=== PATIENT | male | born 1950 | race Hispanic/Latino ===

== ENCOUNTER 2023-12-31 09:08 | Outpatient (CLI) | payer OTHER ==
[2023-12-31 10:44] LABS: Anion Gap 13 mmol/L (10-20); BUN (Urea Nitrogen) 16 mg/dL (8.4-25.7); Calc. Creatinine Clearance 0 mL/min (70-130); Calcium 9.3 mg/dL (7.8-10.44); Carbon Dioxide 25 mmol/L (23-31); Chloride 100 mmol/L (98-107); Estimated GFR 93; Glucose 96 mg/dL (83-110); Potassium 4.9 mmol/L (3.5-5.1); Sodium 133 mmol/L (136-145)
[2024-01-01 14:15] LABS: Total PSA 0.5 ng/mL (0.0-4.0)
== END 2023-12-31 09:09 | disposition home or self-care (01) ==
LOC: MADULT 09:08
PROVIDERS: ATTEND Family Medicine
DX: Z87.448 Personal history of other diseases of urinary system (principal); N40.0 Benign prostatic hyperplasia without lower urinary tract symptoms; N28.1 Cyst of kidney, acquired; R93.422 Abnormal radiologic findings on diagnostic imaging of left kidney
CPT/HCPCS: 36415; 76770; 80048; 84153; 84154

== ENCOUNTER 2024-04-05 17:41 | Outpatient (CLI) | payer OTHER | END 2024-04-05 17:42 | disposition home or self-care (01) | LOC: MADRAD 17:41 | PROVIDERS: ATTEND Family Medicine | DX: M25.511 Pain in right shoulder (principal); M25.512 Pain in left shoulder; M54.2 Cervicalgia; M47.812 Spondylosis without myelopathy or radiculopathy, cervical region | CPT/HCPCS: 72040 ==